=== PATIENT | female | born 2005 | race Caucasian/White ===

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

== ENCOUNTER → 2023-12-02 15:52 | Outpatient (CLI) | payer OTHER, SELFPAY ==
[2023-12-02 18:17] LABS: COVID-19 CEPHEID 4-PLEX PCR Negative (Negative); Influenza A - CEPHEID Flu A NEGATIVE (NEGATIVE); Influenza B - CEPHEID Flu B NEGATIVE (NEGATIVE); Respiratory Syncytial Virus Negative (Negative)
== END ==
PROVIDERS: Visit Provider Physician Assistant Medical
DX: R50.9 Fever, unspecified (principal)
CPT/HCPCS: 0241U

== ENCOUNTER → 2023-12-02 17:24 | Outpatient (CLI) | payer OTHER, SELFPAY ==
--- NOTE | 2023-12-02 17:26 | DI.RAD.S_ITS ---
PROCEDURE: XR CHEST 2V INDICATIONS: SOB TECHNIQUE: 2 views of the chest were acquired. COMPARISON: None. FINDINGS: Surgical changes and devices: None. Lungs and pleura: Lungs are clear. No pleural effusions or pneumothorax. Mediastinum: Mediastinal contours are normal. Heart size is normal. Bones and chest wall: No suspicious bony abnormalities. Soft tissues appear unremarkable. IMPRESSION: No acute cardiopulmonary abnormality is seen. Dictated by: Dez Woodruff M.D. on 12/02/2023 at 18:14 Approved by: Dez Woodruff M.D. on 12/02/2023 at 18:14
== END ==
PROVIDERS: Referring Provider Physician Assistant Medical; Visit Provider Physician Assistant Medical
DX: R06.02 Shortness of breath (principal); R50.9 Fever, unspecified
CPT/HCPCS: 0241U; 71046

== ENCOUNTER 2024-07-12 20:38 | Emergency (ER) | payer BC, SELFPAY ==
[2024-07-12 20:43] VITALS: BP 147/91; PULSE 136; RESP 16; TEMP 36.6; O2SAT 100; BMI 27.4
--- NOTE | 2024-07-12 21:17 | ED.HEATRA ---
HPI - Head Injury General Chief complaint: Head Injury Stated complaint: fall, head injury Time Seen by Provider: 07/12/24 20:56 Source: patient Mode of arrival: Ambulatory History of Present Illness HPI Narrative: 18-year-old female here for evaluation a bruise under her left eye. She was using a public restroom. States that as she was finishing up she fell forward and hit her left eye on the metal sink. No loss of consciousness. Stated that afterwards she had almost immediate swelling and bruising under her left eye. No vision problems. No other injuries from the event. Related Data Home Medications Medication Instructions Recorded Confirmed prenat.vits,sean,[id number] 1 tab PO DAILY 07/30/19 12/19/23 Previous Rx's Medication Instructions Recorded ondansetron 4 mg disintegrating 4 mg PO Q8H PRN nausea and 01/20/22 tablet vomiting #10 tabs Allergies Allergy/AdvReac Type Severity Reaction Status Date / Time No Known Drug Allergies Allergy Verified 07/12/24 20:48 Review of Systems Eyes Eyes: Reports system reviewed and no additional complaints, except as documented ENT Ears, Nose, Mouth, and Throat: Reports system reviewed and no additional complaints, except as documented Integumentary/Breasts Skin/Breast: Reports system reviewed and no additional complaints, except as documented Neurologic Neurologic: Reports system reviewed and no additional complaints, except as documented Patient History Medical History hemorrhage Vision disorder Eczema Acne Depression Anxiety Shoulder pain Ovarian cyst Herpes Heart murmur History of suicide attempt Social History Smoking Status: Never smoker Smoking Status: Never smoker Substance Use Type: does not use Exam Initial Vital Signs Initial Vital Signs: Vital Signs Temperature 98 F 07/12/24 20:43 Pulse Rate 136 H 07/12/24 20:43 Respiratory Rate 16 07/12/24 20:43 Blood Pressure 147/91 H 07/12/24 20:43 Pulse Oximetry 100 07/12/24 20:43 Oxygen Delivery Method Room Air 07/12/24 20:43 HENMT Head: normal to inspection and normocephalic Ears: TM's normal bilaterally Mouth: oral mucosae normal Eyes Periorbital: periorbital findings abnormal (Contusion under left eye) Eyelids: eyelids normal Pupils: PERRL EOM: EOM intact bilaterally Skin Other: Contusion under left eye Neuro General: patient alert and patient awake Course Vital Signs Vital signs: Vital Signs - 8 hr 07/12/24 20:43 Temperature 98 F Pulse Rate 136 H Respiratory Rate 16 Blood Pressure 147/91 H Pulse Oximetry 100 Oxygen Delivery Method Room Air MDM - Head Injury MDM Narrative Medical decision making narrative: Left eye itself appears to be unremarkable. Extraocular muscles are intact. No step-offs with palpation along the orbital rim. Nasal bone is intact. No dental abnormalities noted. No hemotympanum. Has contusion under the left eye. Low suspicion for fracture. Discuss this with the patient. Will use ice and Tylenol and ibuprofen as needed. She was given return precautions. She expressed understanding and agreement. Discharge Plan Departure Patient Disposition: Home Clinical Impression: Contusion of face Instructions: DI for Eye Contusion Activity Restrictions/Additional Instructions: You can take ibuprofen (600 mg every 8 hours) as needed for any discomfort. I recommend ice over the area. No restrictions on your activities. Return to the emergency department for new symptoms. Prescriptions: No Action prenat.vits,sean,[id number] tablet 1 tab PO DAILY ondansetron 4 mg tablet,disintegrating 4 mg PO Q8H PRN (Reason: nausea and vomiting) Qty: 10 0RF Referrals: Miscellaneous,Doctor, MD [Primary Care Provider] - Stand Alone Forms: Patient Portal/API
== END 2024-07-12 21:32 | disposition home or self-care (01) ==
PROVIDERS: Emergency Provider Emergency Medicine
DX: S00.12XA Contusion of left eyelid and periocular area, initial encounter (principal); W18.30XA Fall on same level, unspecified, initial encounter
CPT/HCPCS: 99281